=== PATIENT | female | born 1980 | race Caucasian/White ===

== ENCOUNTER 2016-11-03 18:15 | Emergency (ER) | payer MEDICAID ==
[2016-11-03 22:56] LABS: BASOPHIL % 0.1 % (0-2); PLATELET COUNT 284 x10^3mcL (130-400); RED CELL DISTRIBUTION WIDTH 14.3 % (11.5-14.5)
[2016-11-03 23:01] LABS: UA SPECIFIC GRAVITY <=1.005 (1.005-1.035); microscopic required? YES; urine erythrocyte 3+ (NEGATIVE)
[2016-11-03 23:03] LABS: CALCIUM 8.4 mg/dL (8.5-10.1); CARBON DIOXIDE 27.4 mmol/L (21-32); CHLORIDE SERUM 103 mmol/L (98-107); CREATININE SERUM 1.1 mg/dL (0.6-1.0); GFR1 > 60 mL/min; GLUCOSE SERUM 105 mg/dL (74-106); POTASSIUM SERUM 3.3 mmol/L (3.5-5.1); SODIUM SERUM 136 mmol/L (136-145)
[2016-11-03 23:08] LABS: ALKALINE PHOSPHATASE 127 U/L (46-116); ALT/SGPT 37 U/L (14-59); AST/SGOT 33 U/L (15-37); BILIRUBIN TOTAL 0.6 mg/dL (0.20-1.00); TOTAL PROTEIN, SERUM 7.1 g/dL (6.4-8.2)
[2016-11-03 23:09] LABS: ALBUMIN 2.8 g/dL (3.4-5.0)
[2016-11-04 00:06] VITALS: BP 103/73
== END 2016-11-04 00:06 | disposition home or self-care (01) ==
LOC: ED 18:15
PROVIDERS: Emergency Medicine
DX: N10 Acute pyelonephritis (principal)
CPT/HCPCS: 36415; J7030; Q0162